=== PATIENT | female | born 1965 | race Caucasian/White ===

== ENCOUNTER 2023-01-26 10:41 | Inpatient (IN) | payer BC ==
[~2023-01-26] VITALS: Ht 165.1 cm; Wt 80.7 kg
--- NOTE | 2023-01-26 10:50 | NUR ---
Patient to ER bed 06 to gown for evaluation. Side rails up. Report given to Anya PÉREZ.
[2023-01-26 10:51] VITALS: BP_SYST 161
--- NOTE | 2023-01-26 10:55 | NUR ---
RECEIVED PT FROM ELISA HARVEY. ASSUMED CARE. PT BIB FAMILY MEMBER WITH C/O N/V AND ABDOMINAL PAIN. PT STATES SHE HAS HX OF ABDOMINAL SURGERY AND ABDOMINAL ADHESIONS. PT IS AAOX4. ON R/A. DISTAL PULSES NORMAL, SKIN INTACT. SIDERAILS UP X2.
--- NOTE | 2023-01-26 11:00 | NUR ---
DR. HASTINGS AT BEDSIDE TO ASSESS PT.
[2023-01-26] MEDS ORDERED: KETOROLAC TROMETHAMINE 60 MG/2 ML VIAL IM ONE (11:15)
[2023-01-26 11:29] LABS: BASOPHILS % (AUTO) 0.5 % (0.0-2.0); EOSINOPHILS # (AUTO) 0.1 K/uL (0.0-0.4); EOSINOPHILS % (AUTO) 0.7 % (0.0-4.0); HEMOGLOBIN 15.5 g/dL (12.0-16.0); LYMPHOCYTES # (AUTO) 1.2 K/uL (1.0-5.5); LYMPHOCYTES % (AUTO) 12.2 % (20.5-51.5); MEAN CORPUSCULAR HEMOGLOBIN 32 pg (27-31); MEAN CORPUSCULAR HGB CONC 35 % (32-36); MEAN CORPUSCULAR VOLUME 90 fL (79.0-98.0); MONOCYTES # (AUTO) 0.7 K/uL (0.0-1.0); NEUTROPHILS # (AUTO) 7.5 K/uL (1.8-7.7); NEUTROPHILS % (AUTO) 79.6 % (40.0-70.0); PLATELET COUNT (AUTO) 249 K/uL (130-430); RED BLOOD CELL COUNT(AUTO) 4.87 MIL/uL (4.2-6.2); RED CELL DISTRIBUTION WIDTH 13.7 % (9.0-15.0); WHITE BLOOD COUNT (AUTO) 9.5 K/uL (4.8-10.8)
--- NOTE | 2023-01-26 11:34 | NUR ---
TORADOL 60MG IM GIVEN FOR AB PAIN 01/13.
[2023-01-26 11:38] LABS: CALCIUM 9.8 mg/dL (8.4-11.0); CREATININE 0.86 mg/dL (0.55-1.30)
[2023-01-26 11:43] LABS: ALBUMIN 4.4 g/dL (3.4-4.8); TOTAL BILIRUBIN 0.7 mg/dL (0.0-1.0)
[2023-01-26 11:59] LABS: BILIRUBIN,URINE 1+ (NEGATIVE); BLOOD, URINE NEGATIVE (NEGATIVE); CLARITY/URINE CLEAR (CLEAR); COLOR,URINE YELLOW (YELLOW); GLUCOSE,URINE NEGATIVE (NEGATIVE); KETONES,URINE NEGATIVE (NEGATIVE); LEUKOCYTE ESTERASE ,URINE NEGATIVE (NEGATIVE); NITRITE, URINE NEGATIVE (NEGATIVE); PH,URINE 6.5 (5.0-8.0); PROTEIN URINE TRACE (NEGATIVE); UROBILINOGEN,URINE 0.2 (0.2-1.0)
--- NOTE | 2023-01-26 12:03 | NUR ---
URINE OBTAINED AND TAKEN TO LAB.
[2023-01-26] MEDS ORDERED: PIPERACILLIN/TAZO 3.375 GM in NS 50 ML IV ONE (14:15)
[2023-01-26] MEDS ORDERED: PANTOPRAZOLE SODIUM 40 MG/VIAL (PROTONIX) IVP ONE (14:30)
[2023-01-26] MEDS ORDERED: PIPERACILLIN/TAZOBACTAM 3.375 GM/VIAL (ZOSYN) IV ONE ×2 (14:38→15:34)
--- NOTE | 2023-01-26 15:10 | NUR ---
# 20 gauge angiocath placed to fra. Use of asceptic technique. Opsite placed over site. Blood return noted. Blood for lab drawn from site. Flushed with 10 cc of normal saline. No evidence of infiltration noted. Patient tolerated well.
[2023-01-26] MEDS: ONDANSETRON HCL 4 MG/2 ML VIAL IVP PRN ×2 (15:26→15:57)
[2023-01-26] MEDS ORDERED: LIDOCAINE VISCOUS 2%, 15 ML UDC MM ONE (15:45)
--- NOTE | 2023-01-26 15:59 | NUR ---
MORPHINE 4MG IVP GIVEN FOR AB PAIN 03/15, ZOFRAN 4MG IVP AND REGLAN IVP GIVEN.
--- NOTE | 2023-01-26 15:59 | NUR ---
DR. PEREZ AT BEDSIDE TO ASSESS PT.
[2023-01-26] MEDS ORDERED: METOCLOPRAMIDE HCL 10 MG/2 ML VIAL IVP ONE (16:00)
[2023-01-26] MEDS ORDERED: MORPHINE 4 MG INJ. 4 MG/ML VIAL IVP ONE (16:00)
--- NOTE | 2023-01-26 16:19 | NUR ---
# 16 FR NG tube placed to RIGHT nare. Placement checked by auscultation of instilled air into stomach and aspiration of gastric contents. Tubing taped in place to prevent dislodging. Patient tolerated WELL. NGT TUBE PLACED TO INTERMITTENT SUCTION., 400 CC BILE COLORED FLUID REMOVED.
--- NOTE | 2023-01-26 17:03 | NUR ---
DR. MEIER AT BEDSIDE TO ASSESS PT.
--- NOTE | 2023-01-26 17:16 | NUR ---
Admit bed requested Patient will be admitted to care of . Admitted to MEDICAL SURGICAL unit. Diagnosis SBO Inpatient (Yes or No) YES Observation (Yes or No) NO Orientation concerns or request close to nursing station (Yes or No) NO Covid Status N/A On vent or bipap NO Isolation requirements NONE Needs a sitter NO From Home (Yes or if No enter name of facility) YES Requires Dialysis (Yes or No) NO Med Rec Completed (Yes of No) YES
[2023-01-26] MEDS ORDERED: GASTROGRAFIN 120 ML ONE (17:19)
[2023-01-26] MEDS: KCL 20 mEq in D5/0.45NS 1000mL 1,000 ML IV SCH (17:35)
--- NOTE | 2023-01-26 17:36 | NUR ---
KCL 20MEQ D5 1/2 INITIATED AT 100ML/HOUR.
--- NOTE | 2023-01-26 19:16 | NUR ---
ENDORSED PT TO ELISA NORIEGA. ALL QUESTIONS AND CONCERNS ADDRESSED.
--- NOTE | 2023-01-26 19:40 | NUR ---
FIRST CONTACT WITH PT. ASSESSMENT COMPLETED. AWAITING ADDITIONAL EVAL AND ORDERS.
--- NOTE | 2023-01-26 21:00 | NUR ---
PT TO RESTROOM UNASSISTED. TELEPHONE REPORT.
--- NOTE | 2023-01-26 21:17 | NUR ---
PT WITH LARGE WATERY GREEN STOOL PRIOR TO TRANSPORT.
--- NOTE | 2023-01-26 21:17 | NUR ---
Patient will be admitted to care of DR PEREZ. Admitted to MED SURGE unit. Will go to room 107 B. Belongings list completed. Complete and up to date summary report printed. SBAR report CALLED TO ELISA GÓMEZ with opportunity for questions.
--- NOTE | 2023-01-26 21:20 | NUR ---
ADMISSION NOTE Received patient from ER via gurney. Patient admitted with diagnosis of SMALL BOWEL OBSTRUCTION. Patient is awake, alert, oriented X 4. Patient oriented to hospital room, call light, toileting, pain management and safety-teach back done. Patient informed that their room number is 107B. Personal belongings checked and Belongings List documented. Call light within reach.
[2023-01-26 21:25] VITALS: BP_SYST 146
[2023-01-26] MEDS ORDERED: MAG-AL HYDROX/SIMETH 30 ML UDC NG ONE (22:00)
[2023-01-26] MEDS ORDERED: MORPHINE 2 MG/ML INJ. SYRINGE IVP PRN (22:00)
[2023-01-27 01:22] VITALS: BP_SYST 158
--- NOTE | 2023-01-27 01:36 | NUR ---
ROUNDS Pt awake, ambulated to the restroom with steady gait. NGT in place. Bed in lowest position, call light within reach
[2023-01-27 05:10] LABS: BASOPHILS % (AUTO) 0.3 % (0.0-2.0); EOSINOPHILS % (AUTO) 0.4 % (0.0-4.0); HEMOGLOBIN 14.4 g/dL (12.0-16.0); LYMPHOCYTES # (AUTO) 0.6 K/uL (1.0-5.5); MEAN CORPUSCULAR HEMOGLOBIN 32 pg (27-31); MEAN CORPUSCULAR HGB CONC 35 % (32-36); MEAN CORPUSCULAR VOLUME 92 fL (79.0-98.0); MONOCYTES # (AUTO) 0.7 K/uL (0.0-1.0); MONOCYTES % (AUTO) 10.1 % (1.7-9.3); NEUTROPHILS % (AUTO) 81.2 % (40.0-70.0); PLATELET COUNT (AUTO) 218 K/uL (130-430); RED BLOOD CELL COUNT(AUTO) 4.46 MIL/uL (4.2-6.2); WHITE BLOOD COUNT (AUTO) 7.4 K/uL (4.8-10.8)
--- NOTE | 2023-01-27 05:36 | NUR ---
NGT DISCONTINUED: DC'd NGT per Dr Booker's orders. Pt now placed on a full liquid diet. Pt tolerated well.
[2023-01-27 06:03] LABS: CALCIUM 9.1 mg/dL (8.4-11.0); CREATININE 1.21 mg/dL (0.55-1.30)
[2023-01-27] MEDS: KCL 20 mEq in D5/0.45NS 1000mL 1,000 ML IV SCH (06:14)
--- NOTE | 2023-01-27 06:44 | NUR ---
CLOSING NOTE Pt is lying in bed, eyes closed. No s/s of respiratory distress. Breathing even and unlabored on RA. IV site intact and patent with fluids running at ordered rate. No complaints of abd pain. All needs met throughout shift. Call light within reach.
[2023-01-27 08:00] VITALS: BP_SYST 134
[2023-01-27] MEDS ORDERED: PANTOPRAZOLE SODIUM 40 MG/VIAL (PROTONIX) IVP SCH (09:00)
[2023-01-27 12:00] VITALS: BP_SYST 159
[2023-01-27] MEDS ORDERED: PSYL575P22 PO (12:07)
[2023-01-27] MEDS ORDERED: PANT20TA2 PO (12:07)
--- NOTE | 2023-01-27 13:50 | NUR ---
D/C Patient Patient given medication reconciliation form and D/C instructions. Exit Care provided. Patient verbalized understanding. MD discussed with patient the results and treatment provided. Ambulatory with steady gait for discharge to home. Patient in stable condition, ID band removed. IV catheter removed, intact and dressing applied, no active bleeding. Rx of given. Patient educated on pain management. All belongings sent with patient.
== END 2023-01-27 13:50 | disposition home or self-care (01) | DRG 390 ==
LOC: SED 10:41 → SMU 14:13
PROVIDERS: ADMIT Specialist; ATTEND Specialist
DX: K56.600 Partial intestinal obstruction, unspecified as to cause (principal)
CPT/HCPCS: 36415; 71045; 74250-TC; 76376; 80048; 80053; 81003; 83690; 85025; 87040; 99285; C9113; J1885; J2001; J2270; J2405; J2543; J2765; Q9963